=== PATIENT | female | born 1970 ===

== ENCOUNTER 2016-10-06 09:48 | Day surgery (SDC) | payer OTHER ==
[~2016-10-06] VITALS: Ht 165.1 cm; Wt 73.0 kg
[~2016-10-06 09:48] MED LIST: 0.9% Sodium Chloride 1,000 ML IV SCH; OMEG500C3 PO; Sodium Chloride LOK Flush 10 mL Syringe IV PRN; fentaNYL-PF 50 mCg/mL 2 mL Inj IVPUSH PRN
[2016-10-06 10:29] VITALS: BP 142/90; PULSE 80; RESP 14; O2SAT 100
[2016-10-06] MEDS ORDERED: CETI10CA PO (10:43)
[2016-10-06] MEDS ORDERED: ESOM40CA41 PO (10:43)
[2016-10-06] MEDS ORDERED: 0.9% Sodium Chloride 1,000 ML IV ONE (13:18)
--- NOTE | 2016-10-06 13:50 | PCM.ENDEGD ---
EGD Date of Service: Oct 06, 2016 Physician Cy Duenas MD Pre Procedure Diagnosis: Dysphagia Post Procedure Dx & Findings: Rule out Navarro's Procedure Esophagogastroduodenoscopy PROCEDURE IN DETAIL: The patient was placed in left lateral decubitus position. Bite block was placed. Scope lubricated, placed in posterior pharynx, passed through the cricopharyngeus and esophagus, slowly advanced the entire length of the gastric pouch, pylorus was identified, scope passed through the pylorus and descending portion of duodenum, withdrawn in the antrum, retroflexed upon itself for view of fundus and cardia. Scope was then withdrawn through the oropharynx. The Z line was at 38 cm. Irregularity noted. There is 2 spots which appeared to be consistent with islands of salmon color mucosa. This was about at most 1- 1/2 cm in length. Four-quadrant biopsy obtained. No mass ulcer erosion noted. Stomach showed normal mucosa without any mass ulcer erosion. Retroflexion was done. Stomach was easily inflatable and deflated using air. Cardia fundus body antrum and pylorus were all visualized. Advanced to distal duodenum. Duodenum showed normal villous structures with normal folds. Impression Rule out Navarro's No cause of dysphagia Recommendation Avoid biopsy results Follow-up with GI PA. Consider PPI use. Presedation Assessment Risks and Benefits Informed consent was obtained from the patient after all risks and benefits including but not limited to drug reaction, infection, pain, bleeding, perforation, as well as alternatives were discussed. Patient monitoring Continuous pulse oximetry, cardiac monitoring, blood pressure monitoring, IV access, and oxygen at 2L per nasal cannula. Periprocedural Fentanyl: Fentanyl 125mcg Incrementally Midazolam: Midazolam 6mg Incrementally Diphenhydramine: Diphenhydramine 25 mg IV Complications There were no periprocedural complications identified. Post Procedure Plan Post Procedure Recommendations 1. Restrict activities today. 2. Resume normal activities in the morning. 3. Resume medications. 4. GERD behavioral modification: - Avoid fatty, acidic, spicy, large meals - Do not lie down after meals - Do not eat or drink anything for at least 2 1/2 hours before going to bed at night - Discontinue tobacco and alcohol - Decrease or avoid caffeine - Avoid chocolate and mints - Decrease weight - Avoid aspirin and non steroidal anti-inflammatory agents (NSAID) such as Aleve, Advil, Mobic, Naproxen, Ibuprofen, etc 5. Add proton pump inhibitor. Take 30 minutes before 1st meal of the day. 6. Patient informed of normal post procedure side effects as bloating, drowsiness, blood streaking in the stool 7. If gastric biopsy reveal H.pylori, continue with appropriate treatment 8. If small bowel biopsy reveals celiac, continue with appropriate treatment 9. Please don't hesitate to call me with any questions Cy Duenas MD Oct 06, 2016 13:50
--- NOTE | 2016-10-06 14:14 | PCM.ENDCOL ---
Colonoscopy Date of Service: Oct 06, 2016 Physician Sukhjinder Duenas MD Pre Procedure Diagnosis: Constipation Post Procedure Dx & Findings: Hemorrhoids polyps Procedure Colonoscopy Prep adequate Withdrawal 14 minutes PROCEDURE IN DETAIL: After unremarkable rectal examination the Olympus colonoscope was inserted patient's anal canal and was advanced to cecum. Landmarks were identified including the ileocecal valve and appendiceal orifice. Scope was withdrawn systematically. The mucosa of the cecum, ascending, transverse, descending, sigmoid, rectal mucosa lined with whitish, pink, smooth, glistening, normal-appearing mucosa, normal fine branching, underlying vascularity, normal haustra. The patient tolerated procedure and was transported to observation area. In the rectum there were 3 little polyps 1mm to less than millimeter. These were all removed completely using cold forcep. In the rectum retroflexion was done which showed hemorrhoids and anal canal was inspected carefully on the way out and hemorrhoids noted.\ Impression Polyps 3 status post complete removal Hemorrhoids Recommendation Repeat colonoscopy 3 years. Presedation Assessment Risks and Benefits Informed consent was obtained from the patient after all risks and benefits including but not limited to drug reaction, infection, pain, bleeding, perforation, as well as alternatives were discussed. Patient monitoring Continuous pulse oximetry, cardiac monitoring, blood pressure monitoring, IV access, and oxygen at 2L per nasal cannula. Complications There were no periprocedural complications identified. Post Procedure Plan Post Procedure Recommendations 1. Restrict activities today. 2. Resume normal activities in the morning. 3. Resume medications. 4. Patient informed of normal post procedure side effects as bloating, drowsiness, blood streaking in the stool. 5. average risk CRCS. If colon polyps come back as: -Hyperplastic- can repeat colonoscopy in 10 years -Tubular adenoma- repeat colonoscopy in 5 years -Tubulovillous/villous adenoma- repeat colonoscopy in 3 years -If any dysplasia- return to clinic as soon as possible 6. Please don't hesitate to call me with any questions. Cy Duenas MD Oct 06, 2016 14:14
[2016-10-06 14:16] VITALS: BP 139/75; PULSE 76; O2SAT 100
[2016-10-06 14:26] VITALS: BP 129/68; PULSE 70; O2SAT 98
[2016-10-06 14:39] VITALS: BP 136/68; PULSE 72; O2SAT 99
--- NOTE | 2016-10-09 10:10 | PATH ---
SURGICAL PATHOLOGY Attending Physician:Cy Duenas M.D. CASE STATUS: Signed Out PATIENT NAME: AARON JENSEN PID: [id number] : 1970 DATE COLLECTED:10/06/2016 00:00 SPECIMEN: 1: Esophagus, Biopsy 2: Rectum, Biopsy CLINICAL HISTORY: 1.GEJ BX 2.RECTAL POLYPS X3 FINAL DIAGNOSIS: 1.GASTROESOPHAGEAL JUNCTION BIOPSY: SQUAMOUS MUCOSA AND GASTRIC CARDIA-TYPE MUCOSA, CHRONICALLY INFLAMED WITH REACTIVE EPITHELIAL CHANGES. Negative for specialized metaplasia of Navarro' s-type esophagus. Negative for dysplasia and malignancy. Rare eosinophils present within squamous epithelium consistent with changes of chronic reflux. Focal areas of pancreatic acinar metaplasia. 2.RECTAL POLYPS: HYPERPLASTIC POLYPS INVOLVING TWO BIOPSY FRAGMENTS. ICD10 CODE K63.5 GROSS DESCRIPTION: The specimen is received in three formalin filled containers labeled with the patient's name. 1). The specimen is sublabeled "GE J." and consists of 4 portions of tissue which aggregate to 0.3 x 0.3 x 0.2 CM. The specimen is entirely submitted in cassette 1A. 2). The specimen is sublabeled "rectal polyps" and consists of 3 tiny portions of tissue which aggregate to 0.2 x 0.2 x 0.2 CM. The specimen is entirely submitted in cassette 2A. 10/07/2016 [facility] MICRO DESCRIPTION: See diagnosis. ICD-9 CODES: CPT CODES: 1: 37763 2: 26769 Electronically Signed Out Geoffrey Echavarria MD [facility] Pathology [facility] [address], [place] [address] Technical component performed at [facility], [facility] [address], [place], [address]
== END 2016-10-06 23:59 | disposition home or self-care (01) ==
LOC: END 09:48
PROVIDERS: ATTEND Internal Medicine
DX: K62.1 Rectal polyp (principal); K59.01 Slow transit constipation; K64.8 Other hemorrhoids; K29.50 Unspecified chronic gastritis without bleeding; K21.9 Gastro-esophageal reflux disease without esophagitis; R13.10 Dysphagia, unspecified; F17.210 Nicotine dependence, cigarettes, uncomplicated; Z79.899 Other long term (current) drug therapy